=== PATIENT | male | born 1945 | race Caucasian/White ===

== ENCOUNTER 2022-06-07 15:18 | Emergency (ER) | payer OTHER ==
[~2022-06-07] VITALS: Ht 180.3 cm; Wt 122.5 kg
[~2022-06-07 15:18] MED LIST: Percocet 5-3251 EACH PO
[2022-06-07] MEDS ORDERED: LISI5 PO (15:30)
[2022-06-07] MEDS ORDERED: AMLO10 PO (15:31)
[2022-06-07] MEDS ORDERED: HYDACE10B PO (17:11)
[2022-06-07 17:30] VITALS: BP 148/71
== END 2022-06-07 18:05 | disposition home or self-care (01) ==
LOC: ER 15:18
DX: S82.842A Displaced bimalleolar fracture of left lower leg, initial encounter for closed fracture (principal); I10 Essential (primary) hypertension; G47.30 Sleep apnea, unspecified; Z79.899 Other long term (current) drug therapy; W18.31XA Fall on same level due to stepping on an object, initial encounter
CPT/HCPCS: 27810; 73610; 76000; 99284-25; A9270; J2704

== ENCOUNTER 2022-06-22 09:31 | Day surgery (SDC) | payer OTHER ==
[~2022-06-22] VITALS: Ht 180.3 cm; Wt 124.3 kg
[~2022-06-22 09:31] MED LIST changes: +AMLO10 PO; +HYDACE10B PO; +LISI5 PO
[2022-06-22] MEDS ORDERED: Aspir 8181 MG PO (10:24)
--- NOTE | 2022-06-22 11:50 | NUR ---
06/22/22 1150 Desi Juarez 2 LARGE FRACTURE BLISTER ON MEDIAL SIDE OF LEFT ANKLE, OPEN, STERILE TEGADERM PLACED OVER FOR PROCEDURE. DR ROBERTSON AWARE. ROPIVACAINE 0.5% 20ML VERIFIED AND MIXED WITH 0.1MG OF EPI (1MG/ML) TO MAKE ROPIVACAINE 0.5% 1:200,000 FOR INJECTION AT OPSITED BY DR ROBERTSON.
[2022-06-22 13:44] VITALS: BP 146/75
--- NOTE | 2022-06-22 14:03 | NUR ---
06/22/22 1403 Dany Khoury PT STATES HIS OXYGEN IS 93% AT BASELINE AT HOME AND FREQUENTLY DROPS TO 80'S.
== END 2022-06-22 14:34 | disposition home or self-care (01) ==
LOC: ORSCSDS 09:31
PROVIDERS: Orthopaedic Surgery
PROC: 0QSK04Z Reposition Left Fibula with Internal Fixation Device, Open Approach (ICD-10-PCS; principal; 2022-06-22 11:00)
DX: S82.842A Displaced bimalleolar fracture of left lower leg, initial encounter for closed fracture (principal); I10 Essential (primary) hypertension; G47.33 Obstructive sleep apnea (adult) (pediatric); E11.9 Type 2 diabetes mellitus without complications; Z79.899 Other long term (current) drug therapy; Z79.82 Long term (current) use of aspirin
CPT/HCPCS: A9270; C1713; J0171; J0690; J1100; J1885; J2250; J2405; J2704; J2795; J3010; J7120